=== PATIENT | male | born 1975 | race Caucasian/White ===

== ENCOUNTER → 2020-10-31 17:44 | Outpatient (CLI) | payer OTHER, SELFPAY ==
--- NOTE | ~2020-10-31 | XR_ITS ---
XR lumbar spine 2-3V DATE: 10/31/2020 18:24 INDICATION: Right lumbar back pain TECHNIQUE: Standing AP, lateral and coned lateral lumbosacral views COMPARISON: None FINDINGS: There are 4 functional lumbar vertebrae. There is minimal degenerative spurring of the lumbar vertebral bodies the lumbar levels interspaces a ppear relatively preserved. No fracture or bone destruction or spondylolisthesis. The lumbar pedicles are intact. The sacroiliac joints appear normal. IMPRESSION: Minimal degenerative spurring Reviewed, dictated and finalized at location A.
== END ==
PROVIDERS: Visit Provider Chiropractor
DX: M54.5 Low back pain (principal)
CPT/HCPCS: 72100